=== PATIENT | male | born 2000 | race Caucasian/White ===

== ENCOUNTER 2021-09-25 14:10 | Emergency (ER) | payer OTHER ==
[~2021-09-25 14:10] MED LIST: ADDERALL XR30 MG PO; AVPAK AZITHROM250 M1 PO; CLARITIN10 MG PO; DEPAKOTE ER250 MG PO; DEPAKOTE ER500 MG PO; FLONASE ALLERG9.9 ML NAS; MOTRIN800 MG PO; PREDNISONE10 MG PO; ROBITUSSIN DM 105 ML PO; SEROQUEL XR200 MG PO; VYVANSE30 MG PO
[2021-09-25] MEDS ORDERED: CYCLOBENZAPRINE10 MG PO (16:36)
[2021-09-25] MEDS ORDERED: IBU800 MG PO (16:36)
== END 2021-09-25 16:32 | disposition home or self-care (01) ==
LOC: ED 14:10
DX: M54.50 Low back pain, unspecified (principal); Z79.899 Other long term (current) drug therapy; W18.39XA Other fall on same level, initial encounter; Y93.89 Activity, other specified; Y92.89 Other specified places as the place of occurrence of the external cause; Y99.8 Other external cause status